=== PATIENT | male | born 1990 | race Two or more races ===

== ENCOUNTER 2024-03-10 16:03 | Emergency (ER) | payer MEDICAID ==
[~2024-03-10] VITALS: Ht 175.3 cm; Wt 88.5 kg
[2024-03-10 18:08] VITALS: BP 151/88; TEMP 97.7; O2SAT 98
== END 2024-03-10 18:09 | disposition home or self-care (01) ==
LOC: ER 16:18
DX: H61.23 Impacted cerumen, bilateral (principal); J45.909 Unspecified asthma, uncomplicated; Z60.2 Problems related to living alone

== ENCOUNTER 2025-02-14 10:40 | Emergency (ER) | payer MEDICAID, OTHER ==
[~2025-02-14] VITALS: Ht 175.3 cm; Wt 86.2 kg
[2025-02-14 10:45] VITALS: BP 140/95; TEMP 98.3
[2025-02-14] MEDS ORDERED: CARB15DR12 EACH EAR (11:34)
[2025-02-14 12:15] VITALS: O2SAT 99
== END 2025-02-14 12:16 | disposition home or self-care (01) ==
LOC: ER 10:44
DX: H61.23 Impacted cerumen, bilateral (principal); J45.909 Unspecified asthma, uncomplicated; Z60.2 Problems related to living alone